=== PATIENT | female | born 1985 | race Caucasian/White ===

== ENCOUNTER 2017-03-29 01:22 | Emergency (ER) | payer MEDICAID ==
[~2017-03-29] VITALS: Ht 177.8 cm; Wt 84.1 kg
[~2017-03-29 01:22] MED LIST: FLUO10CA13 PO; LITH300T3 PO; TRAZ150T18 PO
[2017-03-29 01:25] VITALS: BP 130/82
== END 2017-03-29 01:59 | disposition home or self-care (01) ==
LOC: ED 01:35
DX: L03.211 Cellulitis of face (principal); F15.10 Other stimulant abuse, uncomplicated; Z90.710 Acquired absence of both cervix and uterus; Z90.49 Acquired absence of other specified parts of digestive tract; Z98.890 Other specified postprocedural states; Z98.51 Tubal ligation status
CPT/HCPCS: 99283